=== PATIENT | female | born 1995 | race African-American/Black ===

== ENCOUNTER 2017-06-11 16:34 | Inpatient (IN) | payer SELFPAY ==
[2017-06-11 17:24] VITALS: BMI 29.2
[2017-06-11 18:01] LABS: #Eosinphils 0.4 thou/uL (0.0-0.7); #Lymphocytes 1.5 thou/uL (1.20-3.40); #Monocytes 0.6 thou/uL (0.11-0.59); #Neutrophils 2.7 thou/uL (1.40-6.50); %Basophils 0.6 % (0.0-1.0); %Eosinophils 6.9 % (0.0-10.0); %Lymphocytes 28.6 % (21.0-51.0); %Monocytes 11.6 % (0.0-10.0); %Neutrophils 52.3 % (42.0-75.0); Hemoglobin 11.2 g/dL (12.0-16.0); Mean Corpuscular HGB CONC 31.7 g/dL (32.0-36.0); Mean Corpuscular Hemoglobin 28.1 pg (27.0-31.0); Mean Corpuscular Volume 88.7 fl (81.0-99.0); Mean Platelet Volume 8.5 fL (7.4-10.4); Platelet Count 224 thou/uL (130-400); RBC Distribution Width 13.9 % (11.5-14.5); Red Blood Cell (RBC) Count 3.98 mill/uL (4.20-5.40); White Blood Cell (WBC) Count 5.2 thou/uL (4.8-10.8)
[2017-06-11] MEDS ORDERED: Promethazine HCl 25 MG/ML VIAL IM PRN (18:25)
[2017-06-11] MEDS ORDERED: Lidocaine 1% (PF) 30 ML VIAL SC PRN (18:25)
[2017-06-11] MEDS ORDERED: LR / Pitocin 40 units/1000 ml 1,000 ML IV PRN (18:25)
[2017-06-11] MEDS ORDERED: Ibuprofen 800 MG TAB PO PRN (18:25)
[2017-06-11] MEDS ORDERED: Acetaminophen/Codeine 30-300mg Tablet PO PRN ×2 (18:25)
[2017-06-11 18:26] LABS: ALT (SGPT) 8 U/L (8-55); AST (SGOT) 16 U/L (5-34); Albumin 3.1 g/dL (3.5-5.0); Alkaline Phosphatase 164 U/L (40-150); Anion Gap 11 mmol/L (10-20); BUN (Urea Nitrogen) 6 mg/dL (7.0-18.7); Bilirubin, Total 0.4 mg/dL (0.2-1.2); Calc. Creatinine Clearance 162 mL/min (70-130); Calcium 9.1 mg/dL (7.8-10.44); Carbon Dioxide 24 mmol/L (22-29); Chloride 106 mmol/L (98-107); Estimated GFR-MDRD Greater than 90; Globulin 2.4 g/dL (2.4-3.5); Glucose 79 mg/dL (70-105); Potassium 3.8 mmol/L (3.5-5.1); Protein, Total 5.5 g/dL (6.0-8.3); Sodium 137 mmol/L (136-145)
--- NOTE | 2017-06-11 18:30 | PDOC.LDHP ---
Labor and Delivery H&P Chief complaint: other (Patient sent to L&D for BP obs per Dr Chaney) HPI: This is a 21 yo at 37 weeks 6 days who was seen in the offive today wioth BP 150s/90s. She was sent to L&D for further BP eval. BPs in triage are consistently 150s/90s. She does not report any PIH sxs. Good FM, no hx CHTN. No VB. She was closed per Dr Chaney this office visit today. No LOF reported. Current gestational age (weeks): 37 (6) Dating criteria: last menstrual period Grav: 2 Para: 0 (SAB 1) Current complications: none Abnormal US findings: No Current medications: none Previous surgical history: none Allergies/Adverse Reactions: Allergies Allergy/AdvReac Type Severity Reaction Status Date / Time No Known Allergies Allergy Unverified 06/11/17 17:12 Social history: none - Physical Exam Abnormal vital signs: BPs 150/90s General: NAD Heart: RRR Lungs: CTAB Abdomen: gravid FHT: category 1 - Vaginal Exam cm dilated: 0 (Per Dr Chaney) Effacement: 50% Station: -1 - Assessment L&D Assessment: medically indicated induction (Elevated BPs (non-severe) (PIH). CMP and Urine protein/Creatinine ratio pending. GBS negative.) - Plan Plan: admit to L&D, cervical ripening (Cytotec PV), informed consent obtained, anesthesia consult for pain management, other (Case reviewed with Dr Chaney.)
--- NOTE | 2017-06-11 18:46 | PDOC.EVN ---
Event Note - Event Note Event Note: Plan of care discussed with patient and her family at bedside. Cytotec discussed.
[2017-06-11 19:20] LABS: HBSAg Index 0.14 S/CO (0-0.99); HIV (1/2) Antibody/Antigen Non-Reactive (NonReactive); HIV 1/2 INDEX 0.14 S/CO (<1.00); Hep B Surf Ag Non-Reactive S/CO (NonReactive)
[2017-06-11 19:39] LABS: Creatinine, Urine 45.73 mg/dL (47-110); Protein, Urine Random Quant Less than 10 mg/dL
[2017-06-11 19:39] LABS: Syphilis Antibody Nonreactive (Nonreactive); Syphilis Antibody Index 0.03 S/CO (<1.00 Non-Reactive)
[2017-06-11] MEDS: Lactated Ringer's 1,000 ML IV SCH (19:56)
[2017-06-11] MEDS: Misoprostol 100 MCG TAB VAG SCH (20:00)
[2017-06-11] MEDS ORDERED: Labetalol HCl 100 MG/20 ML VIAL ONE (20:05)
--- NOTE | 2017-06-11 20:08 | PDOC.EVN ---
Event Note - Event Note Event Note: Patient without symptoms in LDR2. BPs are systolic 160s, however. I have ordered oral nifedipine per ACOG guidelines (10mg). CMP ok, no urine protein but severe by BP alone. If not better, we will start Magnesium sulfate.
[2017-06-11] MEDS ORDERED: NIFEdipine 10 MG CAP PO SCH ×2 (20:15→20:45)
[2017-06-11] MEDS ORDERED: NIFEdipine XL 30 MG TAB PO SCH (20:45)
--- NOTE | 2017-06-11 20:46 | PDOC.EVN ---
Event Note - Event Note Event Note: BP 159/97...will order nifedipine 20mg po X1 (30mg orally total)
[2017-06-12] MEDS: Misoprostol 100 MCG TAB VAG SCH ×7 (01:25→17:00)
[2017-06-12] MEDS: Lactated Ringer's 1,000 ML IV SCH (03:50)
[2017-06-12] MEDS ORDERED: Acetaminophen 500 MG TAB PO PRN (04:53)
[2017-06-12] MEDS ORDERED: Acetaminophen 500 MG TAB PO SCH (06:00)
[2017-06-12] MEDS ORDERED: LR 500 ML/Oxytocin 10 units 500 ML ONE (08:42)
--- NOTE | 2017-06-12 08:45 | PDOC.LDPN ---
Labor & Delivery Progress Note - Subjective Subjective: comfortable - Objective Vital signs reviewed and normal: yes (mild range BP) Abnormal vital signs: mild range BP General: resting Uterine fundus: non tender Dilation: 2 Effacement: 50% Station: -1 FHT: category 1 Organ contractions every: 2 AROM: clear fluid - Assessment (1) 38 weeks gestation of Code(s): Z3A.38 - 38 WEEKS GESTATION OF Current Visit: Yes Status : Acute Plan: continue plan of care -: A/P: Pt is a 21yo @ 38 weeks sent from clinic yesterday w elevated BP, admitted for GHTN at term for IOL. Pt given cytotec x 1 dose and went from closed cervix to 2cm this AM. Was noted to have severe range BP overnight and managed w Nifedipine per [facility]. Pt BP improved and denies any SPA ATTENDANT sx. Discussed with pt and her mom today that any sustained severe range BP we will initiate magnesium for seizure prophlaxis, risk and benefits discussed. Maint fluid decreased to 75ml. PIH labs WNL. AROM this AM on exam and will start pitocin.
[2017-06-12] MEDS ORDERED: Lactated Ringer's 1,000 ML IV SCH (08:46)
[2017-06-12] MEDS ORDERED: Fentanyl 4 mcg/Marc 0.1% Cadd 100 ML ONE (19:07)
[2017-06-12] MEDS: Fentanyl 4mcg/Marcaine 0.1% Cassette 100 ML EPIDURAL SCH (19:48)
[2017-06-12] MEDS ORDERED: diphenhydrAMINE 50 MG/ML VIAL IVP PRN (20:25)
[2017-06-12] MEDS ORDERED: Eucerin (Mineral Oil/Petrolatum,White) 30 gm Jar TOP PRN (20:25)
[2017-06-12] MEDS ORDERED: Lactated Ringer's 500 ML IV PRN (20:25)
[2017-06-12] MEDS ORDERED: Ondansetron HCl/PF 4 MG/2 ML Vial IVP PRN (20:25)
[2017-06-12] MEDS ORDERED: Promethazine HCl 25 MG/ML VIAL IM PRN (20:25)
[2017-06-12] MEDS ORDERED: ePHEDrine/0.9% NaCl/PF SYRINGE 50 mg/10 ml SLOW IVP PRN (20:25)
[2017-06-12] MEDS ORDERED: Naloxone HCl 0.4 mg/ml Vial IVP PRN ×2 (20:25)
[2017-06-12] MEDS ORDERED: Acetaminophen 325 MG TAB PO PRN (20:25)
[2017-06-12] MEDS ORDERED: Communication Order-Pharmacy FS SCH (20:30)
[2017-06-12] MEDS: Dextrose 5%-Lactated Ringers 1,000 ML IV SCH (20:31)
[2017-06-12] MEDS ORDERED: Labetalol HCl 100 MG/20 ML VIAL SLOW IVP SCH (23:15)
[2017-06-12] MEDS ORDERED: Labetalol HCl 100 MG/20 ML VIAL SLOW IVP PRN (23:30)
[2017-06-13] MEDS ORDERED: Gentamicin 80 MG/2 ML VIAL IVPB SCH (02:15)
[2017-06-13] MEDS ORDERED: Gentamicin Sulfate 340 MG in Sodium Chloride 0.9% 100 ML IVPB SCH (02:30)
[2017-06-13] MEDS: Fentanyl 4mcg/Marcaine 0.1% Cassette 100 ML EPIDURAL SCH (02:42)
[2017-06-13] MEDS: Dextrose 5%-Lactated Ringers 1,000 ML IV SCH (05:32)
[2017-06-13] MEDS ORDERED: Ampicillin 2 GM in Sodium Chloride 0.9% 100 ML IVPB SCH ×2 (06:00→18:00)
[2017-06-13] MEDS: Acetaminophen 1,000 MG in Premix Bag 1 BAG IVPB SCH ×2 (06:18→16:48)
[2017-06-13] MEDS ORDERED: LR 500 ML/Oxytocin 10 units 500 ML ONE (07:32)
[2017-06-13] MEDS: Ampicillin 2 GM, Syringe 5.2 ML in Sterile Water 14.8 ML SLOW IVP SCH ×3 (07:45→18:44)
[2017-06-13] MEDS ORDERED: Misoprostol 200 MCG TAB ONE (10:05)
--- NOTE | 2017-06-13 10:18 | PDOC.OPDEL ---
OB Operative/Delivery Note Delivery Dr/Surgeon: Shiv Pre-Delivery Diagnosis: medically indicated induction (PIH) Procedure/Post Delivery Dx: operative vaginal delivery Weeks gestation: 38 Anesthesia: epidural - Findings A Sex: male Weight: 7 lb 15 oz - 1 min: 7 - 5 min: 9 - Additional Findings/Plan Placenta delivered: spontaneous Repaired Obstetrical Laceration: 2nd degree (w repair of episiotomy) Estimated blood loss: 500ml Compilations/Other Findings: shoulder dystocia, delivery after McRobert's and suprapubic pressure w episiotomy, left shoulder was anterior, good movement UE and normal exam from pedi
[2017-06-13 10:28] LABS: Actual Bicarbonate (HCO3a) 27.3 mEq/L (22-26); Analyzer IN Cardio OR; Base Excess (BEa) -0.2 mEq/L (0 (+/-) 2.5)
[2017-06-13] MEDS ORDERED: Bupivacaine HCl 0.5%/Epinephrine 1:200,000/PF 30 ml Vial ONE (11:11)
[2017-06-13] MEDS ORDERED: Lidocaine 2% MPF 10 ML AMP (For Epidural Use) ONE (11:11)
[2017-06-13] MEDS ORDERED: Bisacodyl 10 MG SUPP PR PRN (13:25)
[2017-06-13] MEDS ORDERED: diphenhydrAMINE 25 MG CAP PO PRN (13:25)
[2017-06-13] MEDS ORDERED: Preparation H Ointment 28 GM TUBE PR PRN (13:25)
[2017-06-13] MEDS ORDERED: Milk Of Magnesia 30 ML UDCUP PO PRN (13:25)
[2017-06-13] MEDS ORDERED: Ondansetron HCl/PF 4 MG/2 ML Vial IVP PRN (13:25)
[2017-06-13] MEDS ORDERED: LR / Pitocin 40 units/1000 ml 1,000 ML IV SCH (13:25)
[2017-06-13] MEDS ORDERED: Adacel (T-DAP) 0.5 ML VIAL IM ONE (13:25)
[2017-06-13] MEDS ORDERED: Lanolin Ointment 7 GM TUBE TOP PRN (13:25)
[2017-06-13] MEDS ORDERED: Promethazine HCl 25 MG/ML VIAL IM PRN (13:25)
[2017-06-13] MEDS ORDERED: Measles/Mumps/Rubella 10 MCG/0.5 ML VIAL SC ONE (13:25)
[2017-06-13] MEDS ORDERED: Benzocaine/Menthol 20-0.5% 60 ML CAN TOP PRN (13:25)
[2017-06-13] MEDS ORDERED: Acetaminophen/Codeine 30-300mg Tablet PO PRN ×2 (13:25)
[2017-06-13] MEDS: Ibuprofen 800 MG TAB PO SCH ×2 (14:18→21:13)
[2017-06-13] MEDS ORDERED: Gentamicin Sulfate 80 MG in Premix Bag 1 BAG IVPB SCH (17:00)
[2017-06-13] MEDS: Ferrous Sulfate 325 MG TAB PO SCH (17:38)
[2017-06-13] MEDS ORDERED: Sodium Chloride 0.9% 10 ML ONE (19:52)
[2017-06-13] MEDS: Docusate Calcium (SURFAK) 240 MG CAP PO SCH (21:13)
[2017-06-13] MEDS: Gentamicin Sulfate 80 MG in Premix Bag 1 BAG IVPB SCH (21:16)
[2017-06-14] MEDS: Ampicillin 2 GM, Syringe 5.2 ML in Sterile Water 14.8 ML SLOW IVP SCH ×4 (00:23→18:04)
[2017-06-14] MEDS: Ibuprofen 800 MG TAB PO SCH ×3 (05:25→21:44)
[2017-06-14] MEDS: Gentamicin Sulfate 80 MG in Premix Bag 1 BAG IVPB SCH ×3 (05:28→21:43)
[2017-06-14] MEDS ORDERED: Sodium Chloride 0.9% 500 ML IVPB SCH (05:30)
[2017-06-14 05:40] LABS: Hemoglobin 9.3 g/dL (12.0-16.0); Mean Corpuscular HGB CONC 31.3 g/dL (32.0-36.0); Mean Corpuscular Hemoglobin 28.2 pg (27.0-31.0); Mean Corpuscular Volume 89.9 fl (81.0-99.0); Platelet Count 211 thou/uL (130-400); RBC Distribution Width 14.1 % (11.5-14.5); Red Blood Cell (RBC) Count 3.31 mill/uL (4.20-5.40); White Blood Cell (WBC) Count 23.3 thou/uL (4.8-10.8)
[2017-06-14] MEDS: Prenatal Vitamin 1 TAB PO SCH (08:34)
[2017-06-14] MEDS: Ferrous Sulfate 325 MG TAB PO SCH ×2 (08:34→18:04)
[2017-06-14] MEDS: Docusate Calcium (SURFAK) 240 MG CAP PO SCH ×2 (08:35→21:44)
--- NOTE | 2017-06-14 08:47 | PDOC.EVN ---
Event Note - Event Note Event Note: S: Pt doing well, voiding, nl lochia, good pain control. Breast feeding. O: Vital Signs (24 hours) Temp Pulse Resp BP 06/14/17 05:20 98.5 F 80 18 134/83 06/14/17 00:23 98.9 F 81 18 117/55 L 06/13/17 19:57 98.2 F 80 18 126/72 06/13/17 17:00 98.7 F 95 20 128/60 06/13/17 16:00 98.1 F 85 18 06/13/17 15:26 98.1 F 85 18 124/73 06/13/17 14:13 99.1 F 75 20 138/76 06/13/17 13:20 99.3 F 87 18 06/13/17 13:00 99.3 F 87 18 146/72 H Laboratory Last Values WBC 23.3 thou/uL (4.8-10.8) H 06/14/17 05:12 RBC 3.31 mill/uL (4.20-5.40) L 06/14/17 05:12 Hgb 9.3 g/dL (12.0-16.0) L 06/14/17 05:12 Hct 29.8 % (36.0-47.0) L 06/14/17 05:12 MCV 89.9 fl (81.0-99.0) 06/14/17 05:12 MCH 28.2 pg (27.0-31.0) 06/14/17 05:12 MCHC 31.3 g/dL (32.0-36.0) L 06/14/17 05:12 RDW 14.1 % (11.5-14.5) 06/14/17 05:12 Plt Count 211 thou/uL (130-400) 06/14/17 05:12 MPV 8.0 fL (7.4-10.4) 06/14/17 05:12 Neutrophils % 52.3 % (42.0-75.0) 06/11/17 17:35 Lymphocytes % 28.6 % (21.0-51.0) 06/11/17 17:35 Monocytes % 11.6 % (0.0-10.0) H 06/11/17 17:35 Eosinophils % 6.9 % (0.0-10.0) 06/11/17 17:35 Basophils % 0.6 % (0.0-1.0) 06/11/17 17:35 Neutrophils # 2.7 thou/uL (1.40-6.50) 06/11/17 17:35 Lymphocytes # 1.5 thou/uL (1.20-3.40) 06/11/17 17:35 Monocytes # 0.6 thou/uL (0.11-0.59) H 06/11/17 17:35 Eosinophils # 0.4 thou/uL (0.0-0.7) 06/11/17 17:35 Basophils # 0.0 thou/uL (0.0-0.2) 06/11/17 17:35 Bicarbonate Actual 27.3 mEq/L (22-26) H 06/13/17 10:00 ABG pCO2 55.5 mmHg (44.0-56.0) 06/13/17 10:00 ABG Base Excess -0.2 mEq/L (0 (+/-) 2.5) 06/13/17 10:00 Cord ABG pH 7.31 (7.28-7.32) 06/13/17 10:00 Sodium 137 mmol/L (136-145) 06/11/17 17:35 Potassium 3.8 mmol/L (3.5-5.1) 06/11/17 17:35 Chloride 106 mmol/L (98-107) 06/11/17 17:35 Carbon Dioxide 24 mmol/L (22-29) 06/11/17 17:35 Anion Gap 11 mmol/L (10-20) 06/11/17 17:35 BUN 6 mg/dL (7.0-18.7) L 06/11/17 17:35 Creatinine 0.70 mg/dL (0.6-1.1) 06/11/17 17:35 Estimated GFR (MDRD) Greater than 90 06/11/17 17:35 Glucose 79 mg/dL (70-105) 06/11/17 17:35 Calcium 9.1 mg/dL (7.8-10.44) 06/11/17 17:35 Total Bilirubin 0.4 mg/dL (0.2-1.2) 06/11/17 17:35 AST 16 U/L (5-34) 06/11/17 17:35 ALT 8 U/L (8-55) 06/11/17 17:35 Alkaline Phosphatase 164 U/L (40-150) H 06/11/17 17:35 Serum Total Protein 5.5 g/dL (6.0-8.3) L 06/11/17 17:35 Albumin 3.1 g/dL (3.5-5.0) L 06/11/17 17:35 Globulin 2.4 g/dL (2.4-3.5) 06/11/17 17:35 Albumin/Globulin Ratio 1.3 g/dL (1.2-2.2) 06/11/17 17:35 U Random Total Protein Less than 10 mg/dL 06/11/17 18:35 Urine Creatinine 45.73 mg/dL (47-110) L 06/11/17 18:35 Syphilis IgG/IgM Ab Nonreactive (Nonreactive) 06/11/17 17:35 Hep Bs Antigen Non-Reactive S/CO (NonReactive) 06/11/17 17:35 HIV 1&2 Antigen & Ab Non-Reactive (NonReactive) 06/11/17 17:35 Gen. NAD Resp. unlabored . fundus firm below U. A/P: PPD #1 s/p VAVD, c/b shoulder dystocia, chorio doing well. [facility]
[2017-06-14 21:58] VITALS: BP 135/64
[2017-06-15] MEDS: Ibuprofen 800 MG TAB PO SCH (05:46)
--- NOTE | 2017-06-15 07:32 | PDOC.PP ---
Post Progress Note Post Day #: 2 PO intake tolerated: yes Flatus: yes Ambulation: yes Vital Signs (12 hours) Temp Pulse Resp BP 06/15/17 04:00 98.8 F 79 16 06/14/17 23:25 98.8 F 79 16 06/14/17 20:00 98.5 F 79 16 135/64 Weight Weight 181 lb - Physical Examination General: NAD Cardiovascular: no m/r/g, RRR Respiratory: clear to auscultation bilaterally Abdominal: + bowel sounds, lochia Extremities: negative homans (B) Neurological: no gross focal deficits Psychiatric: A&Ox3, normal affect Result Diagrams: 06/14/17 05:12 06/11/17 17:35 Additional Labs: Post Labs Hep Bs Antigen Non-Reactive S/CO (NonReactive) 06/11/17 17:35 (1) 38 weeks gestation of Code(s): Z3A.38 - 38 WEEKS GESTATION OF Status: Acute - Assessment/Plan doing well dc home fu with missael
[2017-06-15 09:27] VITALS: TEMP 99.3
[2017-06-15] MEDS: Docusate Calcium (SURFAK) 240 MG CAP PO SCH (09:39)
[2017-06-15] MEDS: Prenatal Vitamin 1 TAB PO SCH (09:39)
[2017-06-15] MEDS: Ferrous Sulfate 325 MG TAB PO SCH (09:39)
== END 2017-06-15 13:00 | disposition home or self-care (01) | DRG 775 ==
LOC: L&D/OP 16:34 → L&D 20:56 → 3SW 06-13 13:02
PROVIDERS: ADMIT Obstetrics & Gynecology; ATTEND Obstetrics & Gynecology
PROC: 3E0P7VZ Introduction of Hormone into Female Reproductive, Via Natural or Artificial Opening (ICD-10-PCS; principal; 2017-06-11)
PROC: 10907ZC Drainage of Amniotic Fluid, Therapeutic from Products of Conception, Via Natural or Artificial Opening (ICD-10-PCS; 2017-06-12)
PROC: 3E033VJ Introduction of Other Hormone into Peripheral Vein, Percutaneous Approach (ICD-10-PCS; 2017-06-12)
PROC: 10E0XZZ Delivery of Products of Conception, External Approach (ICD-10-PCS; 2017-06-13)
PROC: 0W8NXZZ Division of Female Perineum, External Approach (ICD-10-PCS; 2017-06-13)
DX: O13.4 Gestational [pregnancy-induced] hypertension without significant proteinuria, complicating childbirth (principal); O66.0 Obstructed labor due to shoulder dystocia; Z3A.37 37 weeks gestation of pregnancy; Z37.0 Single live birth
CPT/HCPCS: 36415; 51702; 80053; 82570; 82805; 84156; 85025; 85027; 86780; 87340; 87389; A4216; J0131; J0290; J0595; J0670; J1580; J2001; J2405; J7050; J7120

== ENCOUNTER 2018-09-16 12:13 | Emergency (ER) | payer MEDICAID, OTHER | END 2018-09-16 13:06 | disposition home or self-care (01) | LOC: ERS 12:13 | DX: O99.89 Other specified diseases and conditions complicating pregnancy, childbirth and the puerperium (principal); R05 Cough; Z3A.00 Weeks of gestation of pregnancy not specified | CPT/HCPCS: 99282 ==

== ENCOUNTER 2018-11-19 09:14 | Day surgery (SDC) | payer OTHER ==
--- NOTE | 2018-11-19 10:53 | ER ---
DATE OF SERVICE: 11/19/2018 PRESENTING COMPLAINT: Nausea and vomiting x2 overnight with active fetus. HISTORY OF PRESENT ILLNESS: Ms. Babin is a 23-year-old, 3, para 1, AB-1 at 32 weeks and zero days, 01/14/2019 [place], who reports she had 2 episodes of nausea and vomiting last night at 11 and 3 a.m. She has had none since and has tolerated p.o. since then. She feels a small amount of abdominal cramping, but no vaginal bleeding, discharge, rupture of membranes. She reports active fetus. She denies fever. She denies social contacts with known gastroenteritis. [employer] DEVELOPER HISTORY: History of gestational hypertension in last , history spontaneous vaginal delivery x1 of a 7-pound 15-ounce male with shoulder dystocia. Denies surgical history. PAST MEDICAL HISTORY: No medical history. PAST SURGICAL HISTORY: No surgical history. ALLERGIES: DENIES. MEDICATIONS: vitamins. SOCIAL HISTORY: Denies tobacco, alcohol, or drug use. FAMILY HISTORY: Noncontributory. REVIEW OF SYSTEMS: Noncontributory. Blood type is O positive. PHYSICAL EXAMINATION: GENERAL: Black female, in no acute distress. VITAL SIGNS: Temperature 98.7, respirations 18, blood pressure 120/58, and pulse 85. HEENT: Within normal limits. LUNGS: Clear to auscultation bilaterally. HEART: Regular rate and rhythm. ABDOMEN: Soft, nontender. No rebound or guarding. She has no right upper quadrant pain. No CVA tenderness. EXTREMITIES: No clubbing, cyanosis, or edema. VAGINAL EXAM: Deferred. LABORATORY DATA: monitoring is carried out for greater than 30 minutes, which revealed a category 1 tracing. Positive accelerations, no decelerations, baseline 150s, and no significant contractions noted. IMPRESSION: Mild gastroenteritis at 32 weeks' gestation, resolved. PLAN: Continue p.o. hydration. Discharge home. ER precautions. Keep scheduled followup with Dr. Chaney. Job ID: [id number]
== END 2018-11-19 12:20 | disposition home or self-care (01) ==
LOC: L&D/OP 09:14
PROVIDERS: ATTEND Obstetrics & Gynecology
DX: O99.613 Diseases of the digestive system complicating pregnancy, third trimester (principal); K52.9 Noninfective gastroenteritis and colitis, unspecified; Z3A.32 32 weeks gestation of pregnancy
CPT/HCPCS: 99281

== ENCOUNTER 2018-12-23 10:20 | Day surgery (SDC) | payer OTHER ==
[2018-12-23 10:50] VITALS: BMI 29.0
--- NOTE | 2018-12-23 14:03 | ULT ---
EXAM: OB ultrasound COMPARISON: None HISTORY: arrhythmia. Evaluate for hydrops. TECHNIQUE: Multiplanar grayscale and color Doppler images were obtained in a transabdominal ult rasound. FINDINGS: Estimated weight is 2945 g. Average age of the fetus based off today's examination is 37 weeks 0 days. No hydrops is seen. BPD 9.31 cm -- 37 weeks 6 days HC 33.12 cm -- 37 weeks 5 days AC 32.17 cm -- 36 weeks 1 day FL 7.04 cm -- 36 weeks 1 day The placenta is anterior in location without focal abnormality. SINDY is 14.9 cm which is normal. The cervix is normal in length. There is no evidence of placenta previa. IMPRESSION: 1. Single live intrauterine with estimated age of 37 weeks 0 days. 2. No hydrops
[2018-12-23 15:03] LABS: #Eosinphils 0.1 thou/uL (0.0-0.7); #Lymphocytes 1.3 thou/uL (1.20-3.40); #Monocytes 0.4 thou/uL (0.11-0.59); #Neutrophils 4.1 thou/uL (1.40-6.50); %Basophils 0.5 % (0.0-1.0); %Eosinophils 1.8 % (0.0-10.0); %Lymphocytes 22.1 % (21.0-51.0); %Monocytes 6.7 % (0.0-10.0); Hemoglobin 12.3 g/dL (12.0-16.0); Mean Corpuscular HGB CONC 32.6 g/dL (32.0-36.0); Mean Corpuscular Hemoglobin 28.5 pg (27.0-31.0); Mean Corpuscular Volume 87.5 fL (78.0-98.0); Mean Platelet Volume 7.5 fL (7.4-10.4); Platelet Count 236 thou/uL (130-400); RBC Distribution Width 13.6 % (11.5-14.5); Red Blood Cell (RBC) Count 4.31 mill/uL (4.20-5.40)
[2018-12-23 15:21] LABS: Anion Gap 12 mmol/L (10-20); BUN (Urea Nitrogen) 5 mg/dL (7.0-18.7); Calc. Creatinine Clearance 188 mL/min (70-130); Carbon Dioxide 22 mmol/L (22-29); Chloride 104 mmol/L (98-107); Estimated GFR-MDRD Greater than 90; Glucose 105 mg/dL (70-105); Potassium 3.5 mmol/L (3.5-5.1); Sodium 134 mmol/L (136-145)
--- NOTE | 2018-12-23 20:20 | CON ---
DATE OF CONSULTATION: 12/23/2018 REASON FOR VISIT: Sent from clinic for arrhythmia noted during clinic exam. HISTORY OF PRESENT ILLNESS: Ms. Cassie Babin was sent from clinic today after noting arrhythmia on Doppler exam. The patient presented to Labor and Delivery and was placed on monitoring. During this time, she reported active movement and no contractions. A bedside ultrasound was performed, which confirmed the abnormal heart tracing. The patient was otherwise asymptomatic. PAST MEDICAL HISTORY: and asthma. PAST SURGICAL HISTORY: None. OBSTETRICAL HISTORY: G3, P1-0-1-1 at 36 weeks and 6 days with a previous vaginal delivery at 38 weeks in 2018, spontaneous miscarriage in 2017. GYNECOLOGIC HISTORY: Normal. FAMILY HISTORY: Noncontributory. REVIEW OF SYSTEMS: Positive movement. Rare contractions. No loss of fluid or vaginal bleeding. Other systems negative. PHYSICAL EXAMINATION: VITAL SIGNS: Within normal limits. GENERAL: No acute distress. Alert and oriented. CARDIOVASCULAR: Regular maternal heart rate. LUNGS: Nonlabored breathing. ABDOMEN: Gravid, nontender, palpable movement. heart rate tracing, baseline in the 130s with accelerations and moderate variability. On presentation to Labor and Delivery, the arrhythmia and ectopy were more noteworthy as the patient spent more time in Labor and Delivery. The heart tracing became a more normal rhythm with less aberrant beats noted. Bedside ultrasound with no edema or signs of hydrops noted. Formal ultrasound with radiologist review is pending at the time of this dictation. Tocometer, rare contractions. VAGINA: Approximately 2 cm and 30% effaced, -2. EXTREMITIES: No edema. No clubbing or cyanosis. ASSESSMENT AND PLAN: Ms. Cassie Babin is a 23-year-old G3, P1-0-1-1 at 36 weeks and 6 days with abnormal heart rhythm noted in clinic that was confirmed on presentation to Labor and Delivery. During her time of observation in Labor and Delivery, the heart tracing was noted to return to a more normal rhythm. I reviewed ultrasound video with an MFM and discussed her case briefly with him. The recommendation is to watch the patient on heart monitoring for approximately 4 hours and confirm with formal ultrasound that there are no signs of hydrops. Based on her most recent review of her heart tracing at approximately 3 hours of monitoring, I anticipate that the patient will be discharged home this afternoon with recommendation for routine followup. We discussed avoiding caffeine, chocolate, or cocoa butter. The patient denied using these foods or products today. The patient will continue to monitor for activity and notify if anything new or change is observed. The patient's questions were answered. She will be discharged home later today. Job ID: [id number]
== END 2018-12-23 16:00 | disposition home or self-care (01) ==
LOC: L&D/OP 10:20
PROVIDERS: ATTEND Obstetrics & Gynecology
DX: O99.413 Diseases of the circulatory system complicating pregnancy, third trimester (principal); Z3A.36 36 weeks gestation of pregnancy
CPT/HCPCS: 36415; 59025; 76815; 80048; 85025; 99282

== ENCOUNTER 2019-01-11 05:30 | Inpatient (IN) | payer OTHER ==
[2019-01-11] MEDS ORDERED: Promethazine HCl 25 MG/ML VIAL IM PRN ×4 (06:58→22:37)
[2019-01-11] MEDS ORDERED: HYDROcodone/Acetaminophen 5/325 mg Tablet PO PRN ×3 (06:58→21:12)
[2019-01-11] MEDS ORDERED: NS w/ Oxytocin 10 units 500 ML IV SCH ×2 (06:58)
[2019-01-11] MEDS ORDERED: hydrALAZINE 20 MG/ML VIAL SLOW IVP PRN ×2 (06:58→21:12)
[2019-01-11] MEDS ORDERED: NS / Oxytocin 40 units/1000ml 1,000 ML IV PRN (06:58)
[2019-01-11] MEDS ORDERED: Penicillin G Potassium 5 MILL.UNITS in Sodium Chloride 0.9% 100 ML IVPB SCH (06:58)
[2019-01-11] MEDS ORDERED: Ondansetron PF 4 MG/2 ML Vial IVP PRN ×5 (06:58→22:37)
[2019-01-11] MEDS ORDERED: Ibuprofen 800 MG TAB PO PRN (06:58)
[2019-01-11] MEDS ORDERED: Lidocaine 1% (PF) 30 ML VIAL SC PRN (06:58)
[2019-01-11] MEDS ORDERED: NS w/ Oxytocin 10 units 500 ML ONE (07:00)
[2019-01-11 07:12] VITALS: BMI 30.2
[2019-01-11] MEDS: Lactated Ringer's 1,000 ML IV SCH ×2 (07:32→11:35)
[2019-01-11 07:56] LABS: Hemoglobin 11.7 g/dL (12.0-16.0); Mean Corpuscular HGB CONC 32.8 g/dL (32.0-36.0); Mean Corpuscular Hemoglobin 28.2 pg (27.0-31.0); Mean Corpuscular Volume 86.1 fL (78.0-98.0); Platelet Count 223 thou/uL (130-400); RBC Distribution Width 13.5 % (11.5-14.5); Red Blood Cell (RBC) Count 4.16 mill/uL (4.20-5.40); White Blood Cell (WBC) Count 6.8 thou/uL (4.8-10.8)
[2019-01-11 08:32] LABS: Syphilis Antibody Nonreactive (Nonreactive); Syphilis Antibody Index 0.02 S/CO (<1.00 Non-Reactive)
[2019-01-11 09:32] LABS: HBSAg Index 0.54 S/CO (0-0.99); Hep B Surf Ag NonReactive S/CO (NonReactive)
[2019-01-11] MEDS ORDERED: Fentanyl 4 mcg/Bup 0.1% Cadd 100 ML ONE ×2 (11:00→16:50)
[2019-01-11] MEDS ORDERED: Lidocaine 1.5%/Epinephrine 1:200,000 5 ML AMPUL IJ ONE (11:02)
[2019-01-11] MEDS ORDERED: Lactated Ringer's 500 ML IV PRN (11:15)
[2019-01-11] MEDS ORDERED: Fentanyl 4 mcg/Bupivacaine 0.1% Cassette 100 ML EPIDURAL SCH (11:15)
[2019-01-11] MEDS ORDERED: Naloxone HCl 0.4 mg/ml Vial IVP PRN ×4 (11:15→17:37)
[2019-01-11] MEDS ORDERED: diphenhydrAMINE 50 MG/ML VIAL IVP PRN ×3 (11:15→22:37)
[2019-01-11] MEDS ORDERED: Acetaminophen 325 MG TAB PO PRN (11:15)
[2019-01-11] MEDS ORDERED: Communication Order-Pharmacy FS SCH (11:15)
[2019-01-11] MEDS ORDERED: ePHEDrine/0.9% NaCl/PF SYRINGE 50 mg/10 ml SLOW IVP PRN (11:15)
[2019-01-11] MEDS: Penicillin G 2.5 MILL.units 2.5 MILL.UNITS in Premix Bag 1 BAG IVPB SCH ×2 (11:36→15:46)
--- NOTE | 2019-01-11 12:38 | PDOC.LDPN ---
Labor & Delivery Progress Note - Subjective Subjective: comfortable - Objective Vital signs reviewed and normal: yes General: resting Uterine fundus: non tender Dilation: 6 Effacement: 90% Station: -1 FHT: category 1 AROM: clear fluid - Assessment (1) 39 weeks gestation of Code(s): Z3A.39 - 39 WEEKS GESTATION OF Current Visit: Yes Status : Acute Plan: continue plan of care -: Doing well, comfortable, discussed position changes during labor.
[2019-01-11] MEDS ORDERED: NS / Oxytocin 40 units/1000ml 1,000 ML ONE (16:32)
[2019-01-11] MEDS ORDERED: Lidocaine 1% (PF) 30 ML VIAL ONE (16:32)
[2019-01-11] MEDS ORDERED: Bicitra 30 ML UDCUP ONE (17:33)
[2019-01-11] MEDS ORDERED: Promethazine HCl 25 MG SUPP PR PRN ×2 (17:37→22:37)
[2019-01-11] MEDS ORDERED: Naloxone HCl 0.4 mg/ml Vial IV PRN ×4 (17:37→22:37)
[2019-01-11] MEDS ORDERED: Meperidine HCl/PF 25 MG/ML VIAL SLOW IVP PRN (17:37)
[2019-01-11] MEDS ORDERED: Ondansetron HCl/PF 4 MG/2 ML Vial IVP PRN (17:37)
[2019-01-11] MEDS ORDERED: Acetaminophen 1,000 MG in Premix Bag 1 BAG IVPB PRN (17:38)
--- NOTE | 2019-01-11 17:41 | PDOC.LDPN ---
Labor & Delivery Progress Note - Subjective Subjective: comfortable - Objective Vital signs reviewed and normal: yes General: NAD Uterine fundus: non tender Dilation: 10 Effacement: 100% Station: 0 FHT: category 1 [place] contractions every: 2-3 AROM: clear fluid - Assessment (1) 39 weeks gestation of Code(s): Z3A.39 - 39 WEEKS GESTATION OF Current Visit: Yes Status : Acute (2) Failure to progress in second stage of labor Code(s): O62.2 - OTHER UTERINE INERTIA Current Visit: Yes Status: Acute Plan: other -: Pt was complete and began pushing at approximately 1600. On exam baby palpates in OP position. Attempt to manually rotate after no descent noted with an hour of pushing, not successful at rotation beyond LOT position. Prominent sacrum noted. VAVD discussed, pt consented and vacuum applied for two contractions. Despite adequate pushing from the patient no descent was noted on exam. Discussed recommendation for 1CS due to failure to descent and OBHX sig for VAVD with shoulder dystocia last delivery. Patient agrees w plan of care.
[2019-01-11] MEDS ORDERED: MORPHINE 5 MG/10 ML PF VIAL ONE (17:42)
[2019-01-11] MEDS ORDERED: Oxytocin 10 UNITS/ML VIAL ONE (17:43)
[2019-01-11] MEDS ORDERED: Ondansetron PF 4 MG/2 ML Vial ONE (17:43)
[2019-01-11] MEDS ORDERED: ePHEDrine/0.9% NaCl/PF SYRINGE 50 mg/10 ml ONE (17:43)
[2019-01-11] MEDS ORDERED: PHENYLEPHRINE-NS 100 MCG/ML 10 ML SYRINGE ONE (17:43)
[2019-01-11] MEDS ORDERED: Ketorolac Tromethamine 30 MG/ML VIAL ONE (17:43)
[2019-01-11] MEDS ORDERED: Ketorolac Tromethamine 30 MG/ML VIAL IVP SCH ×2 (17:45→18:00)
[2019-01-11] MEDS ORDERED: CEFAZOLIN 2 GM, IV Admixture Fee-Chemo 1 UNITS in Sodium Chloride 0.9% 100 ML IVPB SCH (17:45)
[2019-01-11] MEDS ORDERED: Bicitra 30 ML UDCUP PO SCH (17:45)
[2019-01-11] MEDS ORDERED: Azithromycin 500 MG in Sodium Chloride 0.9% 250 ML 250 ML IVPB SCH (17:45)
[2019-01-11] MEDS ORDERED: CEFAZOLIN 2 GM in Premix Bag 1 BAG IVPB SCH (17:45)
[2019-01-11] MEDS ORDERED: Communication Order-Pharmacy FS PRN (17:45)
[2019-01-11] MEDS ORDERED: Bupivacaine HCl 0.5%/Epinephrine 1:200,000/PF 30 ml Vial ONE (18:00)
[2019-01-11] MEDS ORDERED: Promethazine HCl 25 MG/ML VIAL ONE (18:23)
[2019-01-11] MEDS ORDERED: Dexamethasone 4 mg/ml Vial ONE (18:23)
--- NOTE | 2019-01-11 19:08 | OP ---
DATE OF PROCEDURE: 01/11/2019 PREOPERATIVE DIAGNOSES: 1. A 23-year-old, G3, P1-0-1-1 at 39 weeks. 2. Elective induction of labor. 3. Failure to descend with maternal pushing efforts and with attempted vacuum extraction. POSTOPERATIVE DIAGNOSES: 1. A 23-year-old, G3, P1-0-1-1 at 39 weeks. 2. Elective induction of labor. 3. Failure to descend with maternal pushing efforts and with attempted vacuum extraction. STUDENT SERVICES VICE PRESIDENT: Dr. Tena. ANESTHESIA: Spinal. COMPLICATIONS: None. ESTIMATED BLOOD LOSS: 800 mL. OPERATIVE FINDINGS: 1. Low-transverse hysterotomy without extension. 2. Vigorous female infant, 8 pounds 0 ounces in occiput posterior position. 3. Normal-appearing placenta. 4. Uterus firm after closure of the hysterotomy. 5. Surgical site hemostatic. INDICATIONS: Ms. Cassie Babin was undergoing an elective induction at 39 weeks. She progressed to complete dilation with Pitocin. She began pushing at approximately 1600. I pushed at the bedside with the patient for approximately an hour with no descent of the head noted. Manual rotation from occiput posterior was attempted, however, unsuccessful. We discussed operative delivery with vacuum extraction, which the patient was familiar with from her previous delivery. We reviewed the indication as well as the risks and benefits. The vacuum was applied over the flexion point with good application of the cup and no maternal tissue within the suction cup. With good and adequate maternal pushing efforts and gentle traction with the vacuum, the head was noted to not descend despite the mother's best efforts and use of the vacuum for two full contractions. The vacuum was then removed and the indication for primary section was discussed with the patient. DESCRIPTION OF PROCEDURE: The patient was taken back to OR with IV fluids running. Ancef and azithromycin were ordered for surgical prophylaxis. Anesthesia had previously been placed as well as Hale catheter replaced prior to moving to the OR. The patient was placed in the OR with dorsal supine position in a left lateral tilt. The abdomen was prepped and draped in normal fashion for section. Surgeons were gloved in. Anesthesia was tested and found to be adequate. A Pfannenstiel skin incision was made with a scalpel. Skin incision was carried down through the subcutaneous tissue to the fascia. Once the fascia was reached, it was incised in the midline and extended superolaterally using curved Barlow scissors. Rojelio clamps were placed at the superior border of the fascia, which was sharply and bluntly dissected off the rectus abdominis muscles. This was completed from the inferior edge of the fascia as well, down toward the pubic symphysis. The rectus muscles and peritoneum were in the midline and bluntly stretched. The Eric O retractor was placed into the peritoneal cavity for retraction, visualization, and protection of the wound. A bladder flap was created and the bladder was dissected away from the planned hysterotomy site. A low-transverse hysterotomy was made with a scalpel. The hysterotomy was extended using the Marroquin maneuver. The infant was delivered vertex through the incision followed by the body. The nose and mouth were suctioned. The cord was doubly clamped and cut. was handed off to special care nurses in attendance. Immediate cry was noted at the warmer. Cord blood was collected. The placenta was delivered. The uterus was exteriorized, massaged firm, and cleared of clot and debris. No extensions were noted. Hysterotomy was reapproximated in a running locked fashion using Monocryl suture. After the hysterotomy was closed, a small area of bleeding was noted from the left corner. A vorwpr-nr-abyeo suture was placed in the left corner with hemostasis noted. There was a small edge of bleeding at the peritoneal edge from the bladder flap dissection. Hemostasis was noted after synagogue of anatomy, was completed with a series of running sutures of this peritoneal edge to the uterine serosa. Hysterotomy was irrigated and dried. No areas of bleeding were noted. FloSeal was applied to the left corner of the incision and pressure was applied with a clean sterile sponge for approximately 3 minutes as prescribed. At the end of the 3 minutes, the hysterotomy was inspected and no bleeding was noted. The Eric O retractor was removed from the abdominal cavity. The counts were correct. The rectus muscle was inspected and any small areas of bleeding were controlled with Bovie cauterization. The rectus fascia was reapproximated with PDS suture in a running locked fashion from corner to corner. The subcutaneous tissue was irrigated and suctioned dry. Any small areas of bleeding were controlled with Bovie cauterization. A series of interrupted chromic sutures were placed in the subcutaneous layer for reapproximation. The skin was closed with 4-0 Monocryl and dressed with Dermabond dressing. The fundus was noted to be firm at the end of the case. The patient tolerated the procedure well. Job ID: [id number]
[2019-01-11] MEDS ORDERED: Simethicone Chewable 80 MG TAB PO PRN (21:12)
[2019-01-11] MEDS ORDERED: Bisacodyl 10 MG SUPP PR PRN (21:12)
[2019-01-11] MEDS ORDERED: NS / Oxytocin 40 units/1000ml 1,000 ML IV SCH (21:12)
[2019-01-11] MEDS ORDERED: Ketorolac Tromethamine 30 MG/ML VIAL IVP PRN (22:37)
[2019-01-11] MEDS ORDERED: Hydrocerin (Eucerin) Cream 120 gm Jar TOP PRN (22:37)
[2019-01-12] MEDS: Lactated Ringer's 1,000 ML IV SCH ×3 (00:55→16:32)
[2019-01-12] MEDS: Ferrous Sulfate 325 MG TAB PO SCH ×3 (00:55→23:34)
[2019-01-12] MEDS: Docusate Calcium (SURFAK) 240 MG CAP PO SCH ×3 (00:55→21:21)
[2019-01-12] MEDS: Ibuprofen 800 MG TAB PO SCH ×4 (00:55→21:20)
[2019-01-12] MEDS: Penicillin G 2.5 MILL.units 2.5 MILL.UNITS in Premix Bag 1 BAG IVPB SCH (00:56)
[2019-01-12 05:43] LABS: Hemoglobin 10.1 g/dL (12.0-16.0); Mean Corpuscular HGB CONC 32.6 g/dL (32.0-36.0); Mean Corpuscular Hemoglobin 28.9 pg (27.0-31.0); Mean Corpuscular Volume 88.9 fL (78.0-98.0); Mean Platelet Volume 7.7 fL (7.4-10.4); Platelet Count 199 thou/uL (130-400); RBC Distribution Width 13.3 % (11.5-14.5); Red Blood Cell (RBC) Count 3.48 mill/uL (4.20-5.40); White Blood Cell (WBC) Count 18.4 thou/uL (4.8-10.8)
[2019-01-12] MEDS ORDERED: HYDROcodone/Acetaminophen 5/325 mg Tablet PO PRN ×4 (05:45→10:30)
[2019-01-12] MEDS ORDERED: Meperidine HCl/PF 25 MG/ML VIAL IM PRN ×2 (05:45→10:30)
--- NOTE | 2019-01-12 08:05 | PDOC.PP ---
Post Progress Note Post Day #: 1 Subjective: doing well, tolerating regular diet, minimal pain PO intake tolerated: yes Flatus: yes Ambulation: yes Vital Signs (12 hours) Temp Pulse Resp BP Pulse Ox 01/12/19 05:20 98.5 F 73 16 111/55 L 01/11/19 23:00 98.6 F 65 12 111/59 L 99 01/11/19 22:15 98.6 F 72 12 115/62 96 01/11/19 21:13 98.6 F 69 12 111/64 98 Weight Weight 187 lb - Physical Examination General: NAD Respiratory: non-labored breathing Deviation from normal: mild tympany but no TTP Skin: CS incision dry & intact Neurological: no gross focal deficits Psychiatric: A&Ox3, normal affect Result Diagrams: 01/12/19 05:24 Additional Labs: Post Labs Blood Type O POSITIVE 01/11/19 07:03 Hep Bs Antigen NonReactive S/CO (NonReactive) 01/11/19 07:03 (1) 39 weeks gestation of Code(s): Z3A.39 - 39 WEEKS GESTATION OF Status: Acute (2) Failure to progress in second stage of labor Code(s): O62.2 - OTHER UTERINE INERTIA Status: Acute (3) delivery delivered Code(s): O82 - ENCOUNTER FOR DELIVERY WITHOUT INDICATION Status: Acute - Assessment/Plan POD1 sp 1CS for failure to descend. Doing well, meeting post op goals.
[2019-01-12] MEDS ORDERED: Adacel (T-DAP) 0.5 ML SYRINGE IM ONE (09:00)
[2019-01-12] MEDS: Prenatal Vitamin 1 TAB PO SCH (09:08)
[2019-01-12] MEDS ORDERED: NO PO,IM,IV OR SC NARCOTICS FOR 12HR EXCEPT BY ANESTHESIA PO SCH (10:30)
[2019-01-13] MEDS: Ibuprofen 800 MG TAB PO SCH ×2 (05:29→14:25)
[2019-01-13 08:24] VITALS: BP 117/69; TEMP 98.1
[2019-01-13] MEDS: Ferrous Sulfate 325 MG TAB PO SCH (08:49)
[2019-01-13] MEDS: Prenatal Vitamin 1 TAB PO SCH (08:49)
[2019-01-13] MEDS: Docusate Calcium (SURFAK) 240 MG CAP PO SCH (08:49)
[2019-01-13] MEDS: Lactated Ringer's 1,000 ML IV SCH ×3 (08:49→14:25)
--- NOTE | 2019-01-13 11:49 | PDOC.PP ---
Post Progress Note Post Day #: 2 Subjective: doing well, tolerating diet, pain minimal, desires DC home PO intake tolerated: yes Flatus: yes Ambulation: yes Vital Signs (12 hours) Temp Pulse Resp BP Pulse Ox 01/13/19 08:23 98.1 F 57 L 20 117/69 97 01/13/19 00:00 98.4 F 77 20 111/58 L Weight Weight 187 lb - Physical Examination General: NAD Respiratory: non-labored breathing Abdominal: no distention Skin: CS incision dry & intact Psychiatric: normal affect Result Diagrams: 01/12/19 05:24 Additional Labs: Post Labs Blood Type O POSITIVE 01/11/19 07:03 Hep Bs Antigen NonReactive S/CO (NonReactive) 01/11/19 07:03 (1) 39 weeks gestation of Code(s): Z3A.39 - 39 WEEKS GESTATION OF Status: Acute (2) Failure to progress in second stage of labor Code(s): O62.2 - OTHER UTERINE INERTIA Status: Acute (3) delivery delivered Code(s): O82 - ENCOUNTER FOR DELIVERY WITHOUT INDICATION Status: Acute - Assessment/Plan POD2 doing well, possible DC home today if baby DC.
== END 2019-01-13 15:50 | disposition home or self-care (01) | DRG 788 ==
LOC: L&D 06:14 → 3SW 21:47
PROVIDERS: ADMIT Obstetrics & Gynecology; ATTEND Obstetrics & Gynecology
PROC: 10D00Z1 Extraction of Products of Conception, Low, Open Approach (ICD-10-PCS; principal; 2019-01-11)
PROC: 10907ZC Drainage of Amniotic Fluid, Therapeutic from Products of Conception, Via Natural or Artificial Opening (ICD-10-PCS; 2019-01-11)
PROC: 3E033VJ Introduction of Other Hormone into Peripheral Vein, Percutaneous Approach (ICD-10-PCS; 2019-01-11)
DX: O62.2 Other uterine inertia (principal); O76 Abnormality in fetal heart rate and rhythm complicating labor and delivery; O99.824 Streptococcus B carrier state complicating childbirth; Z37.0 Single live birth; Z3A.39 39 weeks gestation of pregnancy; O66.5 Attempted application of vacuum extractor and forceps
CPT/HCPCS: 36415; 51702; 85027; 86780; 86850; 86900; 86901; 87340; J0456; J0670; J0690; J1100; J1885; J2001; J2274; J2405; J2540; J2550; J2590; J3490; J7050

== ENCOUNTER 2023-02-13 20:19 | Emergency (ER) | payer OTHER, SELFPAY ==
[2023-02-13 21:02] LABS: #Eosinphils 0.2 thou/uL (0.0-0.7); #Monocytes 0.6 thou/uL (0.11-0.59); #Neutrophils 6.7 thou/uL (1.40-6.50); %Basophils 0.4 % (0.0-1.0); %Eosinophils 1.9 % (0.0-10.0); %Lymphocytes 17.7 % (21.0-51.0); %Monocytes 6.6 % (0.0-10.0); %Neutrophils 73.1 % (42.0-75.0); Hemoglobin 11.9 g/dL (12.0-16.0); Mean Corpuscular HGB CONC 32.2 g/dL (32.0-36.0); Mean Corpuscular Hemoglobin 27.8 pg (27.0-31.0); Mean Corpuscular Volume 86.4 fl (78.0-98.0); Mean Platelet Volume 9.2 fL (7.4-10.4); Platelet Count 367 10x3/uL (130-400); RBC Distribution Width 13.1 % (11.5-14.5); Red Blood Cell (RBC) Count 4.28 mill/uL (4.20-5.40); White Blood Cell (WBC) Count 9.1 10x3/uL (4.8-10.8)
[2023-02-13] MEDS ORDERED: Lidocaine 1% w/Epinephrine 1:100K 20 ML VIAL ONE (21:51)
[2023-02-13 21:54] LABS: ALT (SGPT) 24 U/L (8-55); AST (SGOT) 20 U/L (5-34); Albumin 4.3 g/dL (3.5-5.0); Alkaline Phosphatase 94 U/L (40-110); Anion Gap 10 mmol/L (10-20); BUN (Urea Nitrogen) 9 mg/dL (7.0-18.7); Bilirubin, Total 0.3 mg/dL (0.2-1.2); Calc. Creatinine Clearance 0 mL/min (70-130); Calcium 9.7 mg/dL (7.8-10.44); Carbon Dioxide 28 mmol/L (22-29); Chloride 103 mmol/L (98-107); Estimated GFR 109; Globulin 3.3 g/dL (2.4-3.5); Glucose 91 mg/dL (70-105); Potassium 3.9 mmol/L (3.5-5.1); Protein, Total 7.6 g/dL (6.0-8.3); Sodium 137 mmol/L (136-145)
[2023-02-13] MEDS ORDERED: Ketorolac Tromethamine 30 MG/ML VIAL ONE (22:23)
[2023-02-13] MEDS ORDERED: Boostrix 0.5 ML (Tdap) VIAL (>/=7 yrs of age) ONE (22:24)
== END 2023-02-13 22:45 | disposition home or self-care (01) ==
LOC: ERS 20:19
DX: K04.7 Periapical abscess without sinus (principal); Z23 Encounter for immunization
CPT/HCPCS: 36415; 41800; 80053; 83605; 85025; 90471; 90715; 96372; 99283; J1885

== ENCOUNTER 2023-06-28 18:02 | Emergency (ER) | payer SELFPAY ==
[~2023-06-28 18:02] MED LIST: Iopamidol-370 76% 500 ML MDV (1 ML CHARGE) ONE
[2023-06-28] MEDS ORDERED: Amoxicillin/Potassium Clav 875 MG TAB ONE (18:31)
[2023-06-28 18:35] LABS: #Eosinphils 0.2 thou/uL (0.0-0.7); #Neutrophils 12.3 thou/uL (1.40-6.50); %Basophils 0.2 % (0.0-1.0); %Eosinophils 1.6 % (0.0-10.0); %Lymphocytes 8.5 % (21.0-51.0); %Monocytes 6.9 % (0.0-10.0); %Neutrophils 82.4 % (42.0-75.0); Hematocrit 33.9 % (36.0-47.0); Mean Corpuscular HGB CONC 32.4 g/dL (32.0-36.0); Mean Corpuscular Hemoglobin 27.1 pg (27.0-31.0); Mean Corpuscular Volume 83.5 fl (78.0-98.0); Mean Platelet Volume 8.2 fL (7.4-10.4); Platelet Count 578 10x3/uL (130-400); RBC Distribution Width 14.4 % (11.5-14.5); Red Blood Cell (RBC) Count 4.06 mill/uL (4.20-5.40)
[2023-06-28] MEDS ORDERED: Dexamethasone 10 MG/ML VIAL ONE (18:35)
[2023-06-28] MEDS ORDERED: Ketorolac Tromethamine 30 MG (1 mL) VIAL ONE (18:36)
[2023-06-28 18:51] LABS: BHCG - Serum Negative (NEGATIVE); Pregs Control Background? CLEAR/WHITE (CLR/WHITE); Pregs Control Bar Appear? YES (CONTROL BAR)
[2023-06-28 18:57] LABS: MONO NEGATIVE CONTROL ZONE White (Negative) (White); MONO POSITIVE CONTROL Pink Line (Positive) (PINK/RED); Mononucleosis NEGATIVE (NEGATIVE)
[2023-06-28 19:04] LABS: ALT (SGPT) 25 U/L (8-55); AST (SGOT) 20 U/L (5-34); Albumin 4.2 g/dL (3.5-5.0); Alkaline Phosphatase 101 U/L (40-110); Anion Gap 12 mmol/L (10-20); BUN (Urea Nitrogen) 6 mg/dL (7.0-18.7); Bilirubin, Total 0.3 mg/dL (0.2-1.2); Calc. Creatinine Clearance 0 mL/min (70-130); Calcium 9.1 mg/dL (7.8-10.44); Carbon Dioxide 27 mmol/L (22-29); Chloride 103 mmol/L (98-107); Estimated GFR 121; Globulin 3.1 g/dL (2.4-3.5); Glucose 102 mg/dL (70-105); Potassium 3.3 mmol/L (3.5-5.1); Protein, Total 7.3 g/dL (6.0-8.3); Sodium 139 mmol/L (136-145)
[2023-06-28] MEDS ORDERED: Ampicillin/Sulbactam 3 GM VIAL ONE (19:59)
[2023-06-28] MEDS ORDERED: Sodium Chloride 0.9% 100 ML ONE (20:00)
[2023-06-28] MEDS ORDERED: Benzocaine 20% Spray 60 ML CAN ONE (21:19)
[2023-06-28] MEDS ORDERED: Lidocaine 1% w/Epinephrine 1:100K 20 ML VIAL ONE (21:19)
== END 2023-06-28 22:17 | disposition home or self-care (01) ==
LOC: ERS 18:02
DX: J36 Peritonsillar abscess (principal)
CPT/HCPCS: 36415; 70491; 80053; 83605; 84703; 85025; 86308; 87040; 87430; 96361; 96365; 96375; J0295; J1100; J1885; J3490; Q9967

== ENCOUNTER 2023-07-01 22:22 | Emergency (ER) | payer SELFPAY ==
[2023-07-01] MEDS ORDERED: Ketorolac Tromethamine 30 MG (1 mL) VIAL ONE (23:15)
[2023-07-01] MEDS ORDERED: cefTRIAXone (ROCEPHIN) 250 MG VIAL ONE (23:15)
[2023-07-01] MEDS ORDERED: Lidocaine 1% MPF 2 ML VIAL ONE (23:15)
[2023-07-01] MEDS ORDERED: Dexamethasone 10 MG/ML VIAL ONE (23:15)
== END 2023-07-01 23:35 | disposition home or self-care (01) ==
LOC: ERS 22:22
DX: J36 Peritonsillar abscess (principal); F17.210 Nicotine dependence, cigarettes, uncomplicated
CPT/HCPCS: 96372; 99283; J0696; J1100; J1885